=== PATIENT | female | born 1955 | race Caucasian/White ===

== ENCOUNTER → 2018-01-26 | Outpatient (CLI) | payer OTHER ==
[~2018-01-26] MED LIST: ASPI-1181 PO; BIOT5000 PO; CALCIUM CITRATE PO; CHOL200013 PO; CYAN-35 PO; FISH1CAP20 PO; GABA-531 PO; HYDR-4381 PO; LEVO100T4 PO; MELO-108 PO; MULT-264 PO; OMEP40CA37 PO; SIMV20TA6 PO
== END | disposition home or self-care (01) ==
LOC: OIH 14:30
PROVIDERS: ATTEND Family Medicine
DX: R07.9 Chest pain, unspecified (principal); F17.200 Nicotine dependence, unspecified, uncomplicated
CPT/HCPCS: 71046

== ENCOUNTER → 2022-05-11 | Outpatient (CLI) | payer OTHER ==
[~2022-05-11] MED LIST changes: -ASPI-1181 PO; +ASPI-1443 PO; +OMEP40CA21 PO; -OMEP40CA37 PO; +SIMV-43 PO; -SIMV20TA6 PO
== END | disposition home or self-care (01) ==
LOC: RAH 09:16
PROVIDERS: ATTEND Internal Medicine Gastroenterology
DX: K44.9 Diaphragmatic hernia without obstruction or gangrene (principal)
CPT/HCPCS: 74240

== ENCOUNTER → 2024-07-26 | Outpatient (CLI) | payer OTHER ==
--- NOTE | 2024-07-26 16:35 | HMCIMG ---
LUMBAR SPINE 4+VWS HISTORY: Low back pain COMPARISON: None FINDINGS: 5 images of lumbar spine were obtained including oblique views. There is straightening of normal lordotic curvature which may be related to muscle spasm or positioning. Endplate degenerative changes are seen at L5-S1 level with disc space narrowing. Superior endplate compression fracture is seen involving L1 with 40% loss of height. Vascular calcifications are seen.. Degenerative changes are seen. IMPRESSION: 1. Findings as described above.
== END | disposition home or self-care (01) ==
LOC: RAH 15:18
PROVIDERS: ATTEND Family Medicine
DX: M47.817 Spondylosis without myelopathy or radiculopathy, lumbosacral region (principal); M48.07 Spinal stenosis, lumbosacral region; M54.50 Low back pain, unspecified
CPT/HCPCS: 72110